=== PATIENT | female | born 1995 | race American Indian/Alaskan Native ===

== ENCOUNTER 2019-10-06 22:19 | Emergency (ER) | payer SELFPAY ==
--- NOTE | 2019-10-06 23:19 | EDM.PDOC ---
ED HPI GENERAL MEDICAL PROBLEM - General Chief Complaint: General Stated Complaint: BODY ACHE,SINUS PRESSURE Time Seen by Provider: 10/06/19 22:40 Source of Information: Reports: Patient History Limitations: Reports: No Limitations - History of Present Illness INITIAL COMMENTS - FREE TEXT/NARRATIVE: 24-year-old female with some mild sinus pressure for the past 2 days and sore t hroat. No fevers or chills, she was exposed to some friends with "bronchitis" last week so that she should get checked. No rash, no joint pains, she does have some generalized myalgias but no headache. Onset: Gradual Duration: Day(s): (2 days) Associated Symptoms: Reports: Malaise, Shortness of Breath, Weakness. Denies: Chest Pain, Cough, Fever/Chills, Headaches, Nausea/Vomiting body aches Pain Score (Numeric/FACES): 5 - Related Data Allergies Allergy/AdvReac Type Severity Reaction Status Date / Time No Known Allergies Allergy Verified 10/06/19 22:42 Home Meds: Home Meds NK [No Known Home Meds] 10/06/19 [History] Past Medical History HEENT History: Reports: Other (See Below) Other HEENT History: contacts Genitourinary History: Reports: UTI, Recurrent Neurological History: Reports: Concussion Psychiatric History: Reports: Anxiety, Depression, Suicide Attempt Dermatologic History: Reports: Eczema - Infectious Disease History Infectious Disease History: Reports: Chicken Pox Social & Family History - Tobacco Use Smoking Status *Q: Current Every Day Smoker Years of Tobacco use: 3 Packs/Tins Daily: 0.1 Second Hand Smoke Exposure: Yes - Caffeine Use Caffeine Use: Reports: Coffee, Soda - Recreational Drug Use Recreational Drug Use: No ED ROS GENERAL - Review of Systems Review Of Systems: See Below Constitutional: Reports: Malaise. Denies: Fever, Chills HEENT: Reports: Sinus Problem, Throat Pain Respiratory: Reports: Shortness of Breath. Denies: Wheezing, Cough Cardiovascular: Denies: Chest Pain GI/Abdominal: Denies: Nausea, Vomiting Skin: Reports: No Symptoms Psychiatric: Reports: No Symptoms ED EXAM, GENERAL - Physical Exam Exam: See Below Exam Limited By: No Limitations General Appearance: Alert, No Apparent Distress Eye Exam: Bilateral Eye: Normal Inspection Ears: Normal TMs Throat/Mouth: Other (Mild pharyngeal and tonsillar erythema, no exudate) Head: Other (Patient does have some mild sinus tenderness to both maxillary sinuses) Neck: Non-Tender. No: Lymphadenopathy (R), Lymphadenopathy (L) Respiratory/Chest: Lungs Clear Neurological: Alert, Oriented Psychiatric: Normal Affect, Normal Mood Course - Vital Signs Last Recorded V/S: Last Vital Signs Temp 97.1 F 10/06/19 22:42 Pulse 83 10/06/19 22:42 Resp 17 10/06/19 22:42 BP 137/85 10/06/19 22:42 Pulse Ox 96 10/06/19 22:42 - Orders/Labs/Meds Orders: Active Orders 24 hr Category Date Time Status CULTURE STREP A CONFIRMATION [RM] Routine Lab 10/06/19 23:03 Results STREP SCRN A RAPID W CULT CONF [RM] Routine Lab 10/06/19 23:03 Results - Re-Assessments/Exams Free Text/Narrative Re-Assessment/Exam: 10/06/19 23:19 Rapid strep was obtained, patient is willing to give this time if negative and we will treat her if positive. 10/06/19 23:22 Strep is negative, encourage the patient is just give this a few days and if worsening she can return. Rest, fluids, cold medication or ibuprofen may be helpful. Departure - Departure Time of Disposition: 23:36 Disposition: Home, Self-Care 01 Clinical Impression: Viral URI - Discharge Information Instructions: Viral Respiratory Infection, [id number] Referrals: PCP,None [Primary Care Provider] - Forms: ED Department Discharge Care Plan Goals: Rest, fluids, ibuprofen and [id number] cold medicine may be beneficial. Stay hydrated, increase activity and diet as tolerated and return anytime if worsening. Sepsis Event Note (ED) - Evaluation Sepsis Screening Result: No Definite Risk - Focused Exam Vital Signs: Vital Signs Temp Pulse Resp BP Pulse Ox 10/06/19 22:42 97.1 F 83 17 137/85 96 10/06/19 22:31 97.1 F 83 17 137/85 96 - My Orders Last 24 Hours: My Active Orders 10/06/19 23:03 CULTURE STREP A CONFIRMATION [RM] Routine STREP SCRN A RAPID W CULT CONF [RM] Routine - Assessment/Plan Last 24 Hours: My Active Orders 10/06/19 23:03 CULTURE STREP A CONFIRMATION [RM] Routine STREP SCRN A RAPID W CULT CONF [RM] Routine
== END 2019-10-06 23:36 | disposition home or self-care (01) ==
LOC: JP.ED 22:19
DX: J06.9 Acute upper respiratory infection, unspecified (principal); F17.210 Nicotine dependence, cigarettes, uncomplicated
CPT/HCPCS: 87081; 87880-QW; 99283